=== PATIENT | female | born 1975 | race Caucasian/White ===

== ENCOUNTER 2020-02-03 09:28 | Emergency (ER) | payer OTHER, SELFPAY ==
[2020-02-03 09:40] VITALS: BP 128/74; PULSE 67; RESP 16; TEMP 37.1; O2SAT 99
--- NOTE | 2020-02-03 10:02 | ED.SKABFB ---
HPI - Skin/Abscess/Foreign Bdy General Chief complaint: Skin/Abscess/Foreign Body Stated complaint: rash all over Time Seen by Provider: 02/03/20 10:02 Source: patient Mode of arrival: ambulatory Limitations: no limitations History of Present Illness HPI narrative: Connie Hathaway is a 44 yo female with a PMH of anxiety, vitamin D deficiency, who comes to express care with complaints of rash all over body-had been [place] weeds [place] the [employer] on Thursday, use a new brand of sunscreen same day, start taking zinc on Thursday. Has disseminated dermatitis on arms and legs-blanching hive-like rash on arms, legs, and back Related Data Allergies Allergy/AdvReac Type Severity Reaction Status Date / Time No Known Allergies Allergy Verified 02/03/20 10:30 Review of Systems Review of Systems: Narrative: CONSTITUTIONAL: Denies fever, chills, sweats. EYES: Denies visual changes, redness, discharge. ENT: Denies rhinorrhea, congestion, sore throat, otalgia. CARDIOVASCULAR: Denies chest pain, palpitations, edema. RESPIRATORY: Denies dyspnea, wheezing, cough GASTROINTESTINAL: Denies abdominal pain, nausea, vomiting, diarrhea. GENITOURINARY: Denies dysuria, hematuria, abnormal discharge SKIN: Pruritic rash that has appeared on arms and legs that will jennyfer and look like hives NEUROLOGIC: Denies numbness, or focal weakness. PSYCHIATRIC: Denies anxiety or depression. PMFSH Past Medical History Medical History Allergic symptoms BMI 21.0-21.9, adult Cerumen debris on tympanic membrane of right ear Chronic anxiety Chronic neck pain Deviated nasal septum Encounter for wellness examination in adult Irritable bowel syndrome with diarrhea Family History Family History Mother Family history of malignant neoplasm of ovary Social History Social History Smoking status: Former smoker Smoking end date: 06/15/06 Alcohol intake: current Comments At time of signature, I agree with nursing past medical, surgical, social and family history. There is no relevant family history pertinent to the presenting complaint. Exam Narrative: Exam Narrative: GENERAL: This is a well-nourished, well-developed patient, in mild distress. HEAD: normocephalic, atraumatic. EYES: Sclera clear/white. Vision is grossly intact. EARS: External ears normal. Hearing grossly intact. NOSE: External nose normal without nasal discharge, nares without redness, no rhinorrhea. THROAT: Mucous membranes moist, NECK: Neck supple, non-tender CARDIOVASCULAR: Regular rate and rhythm without murmurs, gallops, or rubs. RESPIRATORY: Clear to auscultation. Breath sounds equal bilaterally. No wheezes, rales, or rhonchi. GASTROINTESTINAL: Abdomen soft, non-tender, SKIN: warm, intact with pruritic erythemic hive-like rash on arms and legs, small amount of back, back of hands, none on face NEURO: awake, alert, and oriented to person, place and time. There were no obvious focal neurologic abnormalities. Steady gait EXTREMITIES: Normal range of motion. BACK: Nontender without deformity Course Course Emergency Course: Started on prednisone Benadryl and Pepcid Patient to stop use of sunscreen zinc Follow-up with PCP Vital Signs Vital signs: Vital Signs Temperature 98.7 F 02/03/20 09:40 Pulse Rate 67 02/03/20 09:40 Respiratory Rate 16 02/03/20 09:40 Blood Pressure 128/74 02/03/20 09:40 Pulse Oximetry 99 02/03/20 09:40 Temperature 98.7 F 02/03/20 09:40 Pulse Rate 67 02/03/20 09:40 Respiratory Rate 16 02/03/20 09:40 Blood Pressure 128/74 02/03/20 09:40 Pulse Oximetry 99 02/03/20 09:40 MDM - Skin/Abscess/Foreign Bdy Differential Diagnosis Differential diagnosis: Likely viral exanthem, urticaria, eczema, contact dermatitis and other Discharge Plan Discharge Clinical Impress
[2020-02-03] MEDS: predniSONE 20 MG TABLET 60 MG PO (10:33)
== END 2020-02-03 10:53 | disposition home or self-care (01) ==
PROVIDERS: Emergency Provider Nurse Practitioner; PCP Family Medicine
DX: L23.9 Allergic contact dermatitis, unspecified cause (principal); Z87.891 Personal history of nicotine dependence
CPT/HCPCS: 99213; G0463; J7512

== ENCOUNTER → 2020-04-11 15:37 | Outpatient (CLI) | payer OTHER, SELFPAY ==
--- NOTE | ~2020-04-11 | XR_ITS ---
XR hand LT min 3V 04/11/2020 15:54 INDICATION: Left hand pain after blunt trauma. PROCEDURE: 3 views left hand COMPARISON: No prior studies for comparison. FINDINGS: Fracture, dislocation or subluxation is not identified. The soft tissues appear within norm al limits. No foreign bodies are identified. IMPRESSION: 1: NO ACUTE BONE OR JOINT ABNORMALITY IDENTIFIED. Reviewed, dictated and finalized at location A.
== END ==
PROVIDERS: PCP Family Medicine; Visit Provider Family Medicine
DX: S67.22XA Crushing injury of left hand, initial encounter (principal); X58.XXXA Exposure to other specified factors, initial encounter
CPT/HCPCS: 73130

== ENCOUNTER 2021-03-20 00:46 | Day surgery (SDC) | payer OTHER, SELFPAY ==
[2021-03-06 14:14] VITALS: BMI 21.4
--- NOTE | 2021-03-19 13:03 | WPDANESEPPF ---
Anes - Initial Pre Proc Eval Procedure: Operation Date: 03/20/21 10:00 Proposed Procedures p Colonoscopy - Andres Metzger MD Date/Time: 03/19/21 13:03 Surgeon: Andres Metzger MD Pre Op Diagnosis: diarrhea Patient Data Age: 45 Gender: F Height: 1.73 m Weight: 64 kg Allergies Allergy/AdvReac Type Severity Reaction Status Date / Time No Known Allergies Allergy Verified 03/20/21 09:07 Home Medications Medication Instructions Recorded Confirmed Type alprazolam 0.25 mg tablet 0.25 mg PO TID PRN #60 tablet 04/11/20 03/06/21 Rx naproxen 500 mg tablet 500 mg PO BID PRN #60 tablet 04/11/20 03/06/21 Rx Patient hx anesthesia problems: none Family hx anesthesia problems: none Results Review: All pre-operative results and documents have been reviewed as part of the pre-operative evaluation. [facility] Past Medical History Medical History (Updated 03/19/21 @ 13:03 by Errol Betancourt DO) Allergic symptoms Anxiety BMI 21.0-21.9, adult Cellulitis, finger Cerumen debris on tympanic membrane of right ear Chronic anxiety Chronic diarrhea Chronic neck pain Contact dermatitis COVID-19 Crushing injury of finger with hand, left Crushing injury of left middle finger, subsequent encounter Deviated nasal septum Encounter for wellness examination in adult Irritable bowel syndrome with diarrhea Family History Family History Mother Family history of malignant neoplasm of ovary Ovarian cancer Father Heart disease Social History Social History Smoking status: Never smoker Smoking end date: 06/15/06 Alcohol intake: current Drinks per week: 7 Substance use: never Substance use type: does not use Living arrangements: with family Gender identity (if verbalized by the patient): Female Sexual Orientation (if Verbalized by the Patient): Straight or Heterosexual Spiritual care concerns: No Agree to blood products: Yes Anes - Eval Final PreProcedure Day of Procedure 03/19/21 13:03 Patient weight: normal Heart: regular rate and rhythm Lungs: clear to auscultation and normal air movement Airway: Mallampati scale class II Neurological: alert and oriented Last oral intake: >/= 8 hours ASA classification: II Emergent: no Anesthetic plan: proceed Anesthesia type and monitoring: general GIVS and standard monitoring Results Review: All pre-operative results and documents have been reviewed as part of the pre-operative evaluation. Informed Consent: The patient's anesthetic plan and its attendant risks and benefits were discussed with the patient/family/POA. Questions were solicited and answers provided to the satisfaction of the patient/family/POA.
[2021-03-20 09:12] VITALS: BP 128/91; PULSE 77; RESP 16; TEMP 36.2; O2SAT 100
[2021-03-20] MEDS: LACTATED RINGERS 1,000 ML 150 ML IV CONT (09:14)
--- NOTE | 2021-03-20 09:54 | WPDGICN ---
Assessment and Plan Assessment and plan (1) Chronic diarrhea: Code(s): K52.9 - Noninfective gastroenteritis and colitis, unspecified Status: Acute Assessment and Plan: Patient has chronic diarrhea for this reason colonoscopy is recommended. Symptoms most consistent with irritable bowel syndrome diarrhea predominance. Currently she states she is doing well some with Imodium on a daily basis. Plan is for colonoscopy to assess for organic disease. Continuing extra fiber in her diet is advised. She may benefit from Viberzi. However she refuses this is prefers to remain with Imodium currently. Further recommendations may be given after colonoscopy. (2) Irritable bowel syndrome with diarrhea: Code(s): K58.0 - Irritable bowel syndrome with diarrhea Status: Acute GI Consult Note Consult date/time: 03/20/21 09:54 HPI: Connie Hathaway is a 45 year old female Presents for screening colonoscopy. Patient has a long history of diarrhea. Keep she is a runner and this occurs after running. She has had loose stools frequently. Typically 2-3 loose stools a day. She denies any bleeding or weight loss. Her family history is noncontributory. Previously tried on fiber supplements but this had no impact on her stools. She did have some improvement after taking Xifaxan. Currently takes Imodium 2 tablets a day a bowel function appears very normal on this regime. Noninvasive workup laboratory testing has been unremarkable. Family history is unremarkable as well. [facility] Past Medical History Medical History (Updated 03/19/21 @ 13:03 by Errol Betancourt DO) Allergic symptoms Anxiety BMI 21.0-21.9, adult Cellulitis, finger Cerumen debris on tympanic membrane of right ear Chronic anxiety Chronic diarrhea Chronic neck pain Contact dermatitis COVID-19 Crushing injury of finger with hand, left Crushing injury of left middle finger, subsequent encounter Deviated nasal septum Encounter for wellness examination in adult Irritable bowel syndrome with diarrhea Family History Family History Mother Family history of malignant neoplasm of ovary Ovarian cancer Father Heart disease Social History Social History Smoking status: Never smoker Smoking end date: 06/15/06 Alcohol intake: current Drinks per week: 7 Substance use: never Substance use type: does not use Living arrangements: with family Gender identity (if verbalized by the patient): Female Sexual Orientation (if Verbalized by the Patient): Straight or Heterosexual Spiritual care concerns: No Agree to blood products: Yes Meds Home Medications and Allergies Home Medications Medication Instructions Recorded Confirmed Type alprazolam 0.25 mg tablet 0.25 mg PO TID PRN #60 tablet 04/11/20 03/06/21 Rx naproxen 500 mg tablet 500 mg PO BID PRN #60 tablet 04/11/20 03/06/21 Rx Allergies Allergy/AdvReac Type Severity Reaction Status Date / Time No Known Allergies Allergy Verified 03/20/21 09:07 Vital Signs Vital Signs - 24 hr 03/20/21 09:12 Temperature 97.1 F L Pulse Rate 77 Respiratory Rate 16 Blood Pressure 128/91 H Pulse Oximetry 100 Exam Narrative: physical exam reveals patient be alert. Vital signs stable. HEENT exam is unremarkable. Patient is anicteric. Lungs are clear to auscultation and percussion. Heart is without murmur or extra sounds. Abdominal exam bowel sounds are present soft nontender with no hepatosplenomegaly. Digital external rectal exam is normal.
[2021-03-20 10:25] VITALS: BP 105/63; PULSE 70; RESP 22; O2SAT 100
[2021-03-20 10:35] VITALS: BP 104/71; PULSE 62; RESP 20; O2SAT 100
[2021-03-20 10:45] VITALS: BP 119/81; PULSE 54; RESP 18; O2SAT 100
== END 2021-03-20 11:02 | disposition home or self-care (01) ==
PROVIDERS: PCP Family Medicine; Visit Provider Internal Medicine Gastroenterology
PROC: 0DJD8ZZ Inspection of Lower Intestinal Tract, Via Natural or Artificial Opening Endoscopic (ICD-10-PCS; CPT 45378; principal; 2021-03-20 10:00)
DX: Z12.11 Encounter for screening for malignant neoplasm of colon (principal); K52.831 Collagenous colitis; K52.832 Lymphocytic colitis; F41.9 Anxiety disorder, unspecified; Z86.16 Personal history of COVID-19
CPT/HCPCS: 45380; 88305; J2704; J7120